=== PATIENT | male | born 1970 | race Caucasian/White ===

== ENCOUNTER 2016-04-29 09:48 | Emergency (ER) | payer BC, OTHER ==
[2016-04-29] MEDS ORDERED: KETOROLAC 30 MG/1 ML SDV IVP ONE (10:09)
[2016-04-29] MEDS ORDERED: NS 1,000 ML IV ONE (10:09)
--- NOTE | 2016-04-29 10:27 | UCPHY ---
H & P Patient Type: New Time Seen by Provider: 04/29/16 10:01 HPI/ROS: CHIEF COMPLAINT: Flu-like illness HISTORY OF PRESENT ILLNESS: The patient presents to the emergency department with complaints of an ongoing flu-like illness. The patient has developed symptoms of fever, cough, congestion and myalgias over the past week. The patient was seen by his primary care provider who started him on Tamiflu on Saturday. The patient reports he has continued to use Tylenol and ibuprofen since that time. The patient continues to have a fever, intermittent mild frontal headache, and generalized malaise. The patient has a slight dry nonproductive cough. He has had a small amount of diarrhea without vomiting. The patient denies neck stiffness, rash, numbness, weakness or acute neurologic complaints. REVIEW OF SYSTEMS: A comprehensive 10 point review of systems is otherwise negative aside from elements mentioned in the history of present illness. Source: Patient - Medical/Surgical History PMH: Past medical history: Noncontributory - Family History Significant Family History: No pertinent family hx - Social History Smoking Status: Never smoked - Physical Exam Exam: General Appearance: Alert, no acute distress Eyes: Pupils equal and round no pallor or injection ENT, Mouth: Mucous membranes moist, no pharyngeal erythema, exudate or swelling appreciated Respiratory: There are no retractions, lungs are clear to auscultation Cardiovascular: Regular rate and rhythm Gastrointestinal: Abdomen is soft and nontender, no masses, bowel sounds normal Neurological: A&O, normal motor function, normal sensory exam, normal cranial nerves Skin: Warm and dry, no rashes Musculoskeletal: Neck is supple nontender, no clinical evidence of meningitis Extremities: symmetrical, full range of motion Constitutional: Initial Vital Signs Temperature (C) 37.1 C 04/29/16 10:03 Heart Rate 73 04/29/16 10:03 Respiratory Rate 16 04/29/16 10:03 Blood Pressure 169/82 H 04/29/16 10:03 O2 Sat (%) 93 04/29/16 10:03 O2 Delivery Mode Room Air Allergies/Adverse Reactions: No Known Allergies Allergy (Verified 04/29/16 10:06) Home Medications: Medication Instructions Recorded Adderall 10 MG (*) 04/29/16 Albuterol [Ventolin Hfa Inhaler] 2 puffs IH QID PRN #1 mdi 02/26/17 Bp Med 04/29/16 Bystolic 04/29/16 Bystolic 04/29/16 Ondansetron Odt [Zofran Odt] 4 mg PO Q4PRN PRN #20 tab 04/29/16 Simvastatin 04/29/16 Tamiflu 04/29/16 oxyCODONE/APAP 5/325 [Percocet 1 - 2 tab PO Q6-8PRN PRN #20 tab 04/29/16 5/325 (RX)] Medical Decision Making ED Course/Re-evaluation: The patient presents the emergency department with complaints of ongoing myalgias, fever and generalized malaise following a likely influenza infection. The patient has no clinical evidence of meningitis. He is well-appearing. The patient's strep test is negative. His laboratory studies are unremarkable. The patient did have an IV established. He received a L of normal saline for mild volume depletion and 30 mg of IV Toradol. Patient was re-evaluated by myself at 11:15 a.m.. Will be discharged home with pain medications to manage his viral syndrome. The patient is instructed to return to the ED for worsening headache, neck stiffness or other concerns. The patient continues to have no clinical evidence of bacterial meningitis. Differential Diagnosis: Differential diagnosis considered includes influenza, viral pharyngitis, pneumonia, streptococcal pharyngitis - Data Points Laboratory Results: Laboratory Results 04/29/16 10:23 04/29/16 10:23 04/29/16 04/29/16 04/29/16 Unknown 10:55 10:23 WBC RBC Hgb Hct MCV MCH MCHC RDW Plt Count MPV Neut % (Auto) Lymph % (Auto) [place] % (Auto) Eos % (Auto) Baso % (Auto) Nucleat RBC Rel Count Absolute Neuts (auto) Absolute Lymphs (auto) Absolute Monos (auto) Absolute Eos (auto) Absolute Basos (auto) Absolute Nucleated RBC Immature Gran % Immature Gran # Sodium 134 mEq/L mEq/L (134-144) Potassium 4.4 mEq/L mEq/L (3.5-5.2) Chloride 100 mEq/L mEq/L (97-110) Carbon Dioxide 26 mEq/l mEq/l (22-31) Anion Gap 8 mEq/L mEq/L (8-16) BUN 10 mg/dL mg/dL (7-23) Creatinine 0.9 mg/dL mg/dL (0.7-1.3) Estimated GFR > 60 Glucose 109 mg/dL H mg/dL (70-100) Calcium 8.5 mg/dL mg/dL (8.5-10.4) Group A Strep Screen NEGATIVE (NEGATIVE) Group A Strep DNA Pending 04/29/16 10:23 WBC 10.12 10^3/uL H 10^3/uL (3.80-9.50) RBC 4.48 10^6/uL 10^6/uL (4.40-6.38) Hgb 13.4 g/dL L g/dL (13.7-17.5) Hct 38.3 % L % (40.0-51.0) MCV 85.5 fL fL (81.5-99.8) MCH 29.9 pg pg (27.9-34.1) MCHC 35.0 g/dL g/dL (32.4-36.7) RDW 12.1 % % (11.5-15.2) Plt Count 197 10^3/uL 10^3/uL (150-400) MPV 9.9 fL fL (8.7-11.7) Neut % (Auto) 40.2 % % (39.3-74.2) Lymph % (Auto) 47.8 % H % (15.0-45.0) [place] % (Auto) 10.2 % % (4.5-13.0) Eos % (Auto) 0.1 % L % (0.6-7.6) Baso % (Auto) 0.6 % % (0.3-1.7) Nucleat RBC Rel Count 0.0 % % (0.0-0.2) Absolute Neuts (auto) 4.07 10^3/uL 10^3/uL (1.70-6.50) Absolute Lymphs (auto) 4.84 10^3/uL H 10^3/uL (1.00-3.00) Absolute Monos (auto) 1.03 10^3/uL H 10^3/uL (0.30-0.80) Absolute Eos (auto) 0.01 10^3/uL L 10^3/uL (0.03-0.40) Absolute Basos (auto) 0.06 10^3/uL 10^3/uL (0.02-0.10) Absolute Nucleated RBC 0.00 10^3/uL 10^3/uL (0-0.01) Immature Gran % 1.1 % % (0.0-1.1) Immature Gran # 0.11 10^3/uL H 10^3/uL (0.00-0.10) Sodium Potassium Chloride Carbon Dioxide Anion Gap BUN Creatinine Estimated GFR Glucose Calcium Group A Strep Screen Group A Strep DNA Medications Given: Discontinued Medications Sodium Chloride (Ns) 1,000 mls @ 0 mls/hr IV ONCE ONE PRN Reason: Wide Open Stop: 04/29/16 10:10 Last Admin: 04/29/16 10:20 Dose: 1,000 mls Ketorolac Tromethamine (Toradol) 30 mg IVP EDNOW ONE Stop: 04/29/16 10:10 Last Admin: 04/29/16 10:20 Dose: 30 mg Departure - Departure Disposition: Home, Routine, Self-Care Clinical Impression: Influenza Condition: Good Instructions: Influenza (ED) Additional Instructions: 1. Take Ibuprofen or Motrin 600 mg by mouth three times a day. 2. Percocet as needed for severe pain. Percocet does have Tylenol in it. Please do not take more than 4 g of Tylenol a day. 3. Please use albuterol inhaler as needed for cough. 4. Zofran as needed for nausea. 5. Please return to the ED or urgent care for markedly worsening symptoms, difficulty breathing or other concerns. Referrals: Quentin Lopez DO [Primary Care Provider] - As per Instructions Prescriptions: Albuterol [Ventolin Hfa Inhaler] 2 puffs IH QID PRN #1 mdi PRN Reason: for shortness of breath Ondansetron Odt [Zofran Odt] 4 mg PO Q4PRN PRN #20 tab PRN Reason: For Nausea oxyCODONE/APAP 5/325 [Percocet 5/325 (RX)] 1 - 2 tab PO Q6-8PRN PRN #20 tab PRN Reason: for pain - PQRS PQRS Measurement: Not applicable
[2016-04-29 10:37] LABS: ADD DIFF? NO; ADD MORPH? NO; ADD SCAN? YES; FRAGMENT RBC FLAG 0 (0-99); HEMOGLOBIN 13.4 g/dL (13.7-17.5); LEFT SHIFT FLG 10 (0-99); LIPEMIA HEMOLYSIS FLAG 90 (0-99)
[2016-04-29 10:41] LABS: % IMMATURE GRANULYOCYTES 1.1 % (0.0-1.1); ABSOLUTE IMMATURE GRANULOCYTES 0.11 10^3/uL (0.00-0.10); ATYPICAL LYMPHOCYTE FLAG 300 (0-99); HEMATOCRIT 38.3 % (40.0-51.0); MEAN CELL HEMOGLOBIN 29.9 pg (27.9-34.1); MEAN CELL VOLUME 85.5 fL (81.5-99.8); MEAN PLATELET VOLUME 9.9 fL (8.7-11.7); PLATELET COUNT 197 10^3/uL (150-400); RED BLOOD CELL COUNT 4.48 10^6/uL (4.40-6.38); RED CELL DISTRIBUTION WIDTH 12.1 % (11.5-15.2)
[2016-04-29 10:43] LABS: ANION GAP 8 mEq/L (8-16); CALCIUM 8.5 mg/dL (8.5-10.4); CARBON DIOXIDE 26 mEq/l (22-31); CHLORIDE 100 mEq/L (97-110); CREATININE 0.9 mg/dL (0.7-1.3); GLOMERULAR FILTRATION RATE > 60; GLUCOSE 109 mg/dL (70-100); POTASSIUM 4.4 mEq/L (3.5-5.2); SODIUM 134 mEq/L (134-144)
[2016-04-29 11:27] LABS: PLATELET CLUMPS FLAG 0 (0-99); SCAN NEGATIVE
[2016-04-29 11:59] VITALS: BP 153/83; PULSE 68; RESP 20; TEMP 99.3; O2SAT 91
== END 2016-04-29 11:20 | disposition home or self-care (01) ==
LOC: CED 09:48
DX: J11.1 Influenza due to unidentified influenza virus with other respiratory manifestations (principal)
CPT/HCPCS: 80048-PO; 85025-PO; 87880-PO; 96361-PO; 96374-PO; 99204-PO; G0463-PO; J1885

== ENCOUNTER 2016-05-01 07:44 | Emergency (ER) | payer OTHER ==
[2016-05-01 07:54] VITALS: TEMP 98.2
--- NOTE | 2016-05-01 08:30 | UCPHY ---
H & P Time Seen by Provider: 05/01/16 08:05 Patient Type: Established HPI/ROS: This patient has had influenza clinically diagnosed over this past week. He initially saw his primary care physician last week and was prescribed Tamiflu based on symptoms of fevers myalgias dry cough coryza and fatigue. Despite taking the Tamiflu he still felt poorly with fevers up to 103 so he presented on the for evaluation here. At that time he was treated with a L saline, Toradol with improvement and had a mildly elevated white count just over 10,000 otherwise normal electrolytes and CBC. Was prescribed albuterol inhaler for his cough and presents today because he has ongoing cough and new onset of a noisy sound in his chest. He describes a rattle during the night with breathing. He also has some vomiting that sounds like gagging on sputum last night despite taking the Zofran that was also prescribed during his visit here. He reports dyspnea on exertion as well. He has a slight wheeze feeling in his chest at times. ROS: No high fevers over the past 24 hours. He has mild fatigue the persists. No other constitutional symptoms. HEENT: He reports frontal headaches associated with his fevers are similar to previous headaches. At the moment he has minimal headache. No significant nasal congestion at this point. No sore throat. No ear pain. Pulmonary: No pleuritic pain. No respiratory distress. Cardiovascular: No complaints GI: No abdominal pain. He does have some anorexia this morning. 10 point ROS is otherwise negative. Past Medical/Surgical History: Healthy other than this current flu-like illness. Smoking Status: Never smoked Physical Exam: General Appearance: Alert, no distress. Eyes: Pupils equal and round no pallor or injection. ENT, Mouth: Mucous membranes moist. Respiratory: Minimal expiratory wheeze and a rail on the left midlung that seems to resolve with deep breath or cough. Cardiovascular: Regular rate and rhythm. No murmur gallop or rub. No JVD. No peripheral edema. Gastrointestinal: Abdomen is soft and nontender, no masses, bowel sounds normal. Neurological: Alert with no focal deficits Skin: Warm and dry, no rashes. Musculoskeletal: Neck is supple nontender. Extremities are symmetrical, full range of motion. Psychiatric: Mood and affect normal DIFFERENTIAL DIAGNOSIS: After history and physical exam differential diagnosis was considered for residual bronchitis associated with his flu-like illness, pneumonia, doubt cardiac cause Constitutional: Initial Vital Signs Temperature (C) 36.8 C 05/01/16 07:52 Heart Rate 86 05/01/16 07:52 Respiratory Rate 18 05/01/16 07:52 Blood Pressure 159/84 H 05/01/16 07:52 O2 Sat (%) 97 05/01/16 07:52 O2 Delivery Mode Room Air Allergies/Adverse Reactions: Sulfa (Sulfonamide Antibiotics) Allergy (Verified 05/01/16 07:50) tree nut Allergy (Verified 05/01/16 07:50) Home Medications: Medication Instructions Recorded Adderall 10 MG (*) 04/29/16 Albuterol [Ventolin Hfa Inhaler] 2 puffs IH QID PRN #1 mdi 04/29/16 Bystolic 04/29/16 Bystolic 04/29/16 Ondansetron Odt [Zofran Odt] 4 mg PO Q4PRN PRN #20 tab 04/29/16 Simvastatin 04/29/16 oxyCODONE/APAP 5/325 [Percocet 1 - 2 tab PO Q6-8PRN PRN #20 tab 04/29/16 5/325 (RX)] Azithromycin [Zithromax] 250 mg PO DAILY #4 tab 05/01/16 Promethazine HCl [Phenergan 50mg 50 mg LA Q6 PRN #4 suppr 05/01/16 supp (*)] Valsartan 05/01/16 MDM/Departure - MDM Diagnostics: Chest x-ray a left sided infiltrate consistent with pneumonia. Medications Given: Discontinued Medications Azithromycin (Zithromax) 500 mg PO EDNOW ONE PRN Reason: Protocol Stop: 05/01/16 09:09 Last Admin: 05/01/16 09:18 Dose: 500 mg ED Course/Re-evaluation: Discussion: Patient here with community-acquired pneumonia. Although he has radiographic evidence on physical exam findings consistent with pneumonia he appears well with normal vital signs here. He gagged and vomited prior to arrival but has tolerated p.o. intake here without difficulty. We did discuss full workup for the pneumonia including IV and parental antibiotics but he just had an IV with blood work within the last 48 hours with unremarkable findings. He prefers to not proceed with further workup I think this is reasonable given his well appearing clinical status without meeting SIRS criteria or having other concerning findings clinically. He is treated with 1st dose of Zithromax here and tolerated that well. - Depart Disposition: Home, Routine, Self-Care Clinical Impression: Community acquired pneumonia Condition: Good Instructions: Pneumonia (ED) Additional Instructions: Diagnosis: Community-acquired pneumonia Plan: Zithromax antibiotic. Next dose is tomorrow. YOu received a dose here in the clinic. Phenergan suppository if needed for nausea or vomiting Drink plenty fluids Light diet until he feel improved Go to the emergency department for any significant worsening despite the treatment plan. Stand Alone Forms: Work Excuse Prescriptions: Azithromycin [Zithromax] 250 mg PO DAILY #4 tab Promethazine HCl [Phenergan 50mg supp (*)] 50 mg LA Q6 PRN #4 suppr PRN Reason: vomiting Referrals: Quentin Lopez DO [Primary Care Provider] - As per Instructions - PQRS PQRS Measurement: NA
[2016-05-01] MEDS ORDERED: AZITHROMYCIN 250 MG TAB PO ONE (09:08)
[2016-05-01 09:20] VITALS: BP 157/84; PULSE 82; RESP 20; O2SAT 91
== END 2016-05-01 09:43 | disposition home or self-care (01) ==
LOC: CED 07:44
DX: J18.9 Pneumonia, unspecified organism (principal)
CPT/HCPCS: 71020-PO; 99214-PO; G0463-PO